=== PATIENT | female | born 1980 | race Caucasian/White ===

== ENCOUNTER 2017-06-11 02:48 | Emergency (ER) ==
[2017-06-11 02:53] VITALS: BP 137/98; TEMP 97.4; BMI 19.3
[2017-06-11] MEDS ORDERED: GI COCKTAIL PO STA (03:13)
[2017-06-11] MEDS ORDERED: SODIUM CHLORIDE 1,000 ML IV STA (03:16)
[2017-06-11] MEDS ORDERED: ZOFRAN 4 MG/2 ML IVP STA (03:17)
[2017-06-11] MEDS ORDERED: DUONEB NEB STA (03:17)
--- NOTE | 2017-06-11 03:18 | ED.PDOC ---
General ED Provider: Dr. REDDY WATTERS Chief Complaint: Shortness of Air Stated Complaint: Patient is a 36 year old female who complains feeling shortness of breath and buring 4 hours after she ate a buffee. Time Seen by Physician: 03:18 Mode of Arrival: Walk-In Information Source: Patient Exam Limitations: No limitations Primary Care Provider: VIDHI GTZ Nursing and Triage Documentation Reviewed and Agree: Yes GI Complaint Exam - Abdominal Pain Complaint/Exam Onset: Sudden Duration: 4 hours ago Symptoms Are: Still present Timing: Constant Initial Severity: Moderate Current Severity: Moderate Location of Pain: Epigastric Radiates To: Reports: Chest Character: Reports: Burning Aggravating: Reports: None Alleviating: Reports: None Associated Signs and Symptoms: Reports: Chest pain, Nausea, Vomiting (spitting ) . Denies: Diaphoresis AAA Risk Factors: Reports: None Cardiac Risk Factors: Reports: None Ectopic Risk Factors: Reports: None Ovarian Torsion Risk Factors: Reports: None Surgical Obstruction Risk Factors: Reports: None Related Surgical History: Reports: None Patient Rh Status: Negative Differential Diagnoses: Irritable Bowel Syndrome, PUD, Other (Gastritis) Quality Indicator For Non-Traumatic Chest Pain/Syncope: EKG Performed Review of Systems - Review Of Systems Constitutional: Reports: No symptoms Eyes: Reports: No symptoms Ears, Nose, Mouth, Throat: Reports: No symptoms Respiratory: Reports: Cough, Short of air Cardiac: Reports: No symptoms GI: Reports: Abdominal pain, Nausea, Vomiting : Reports: No symptoms Musculoskeletal: Reports: No symptoms Skin: Reports: No symptoms Neurological: Reports: No symptoms Endocrine: Reports: No symptoms Hematologic/Lymphatic: Reports: No symptoms All Other Systems: Reviewed and Negative Past Medical History - Past Medical History Previously Healthy: Yes Endocrine: Reports: Hypothyroid Cardiovascular: Reports: None Respiratory: Reports: None Hematological: Reports: None Gastrointestinal: Reports: None Genitourinary: Reports: None Neuro/Psych: Reports: None Musculoskeletal: Reports: None Cancer: Reports: None Last Menstrual Period: CURRENT Other Pertinent Past Medical History: TISSUE TUMOR REMOVED FROM UNDER BREAST - Surgical History General Surgical History: Reports: Appendectomy, Tonsillectomy, Hernia Repair, Other (FATTY TISSUE TUMOR REMOVED FROM UNDER BREAST) - Family History Family History: Reports: None - Social History Smoking Status: Current every day smoker Hx Substance Use: No Alcohol Screening: Occasionally - Immunizations Tetanus Shot up to Date: Yes Physical Exam - Physical Exam Appearance: Ill-appearing, Thin Ill-appearing: Moderate Pain Distress: Severe Neck: Supple Respiratory: Airway patent, Breath sounds equal, Breath sounds diminished, Respirations nonlabored Cardiovascular: RRR, Pulses normal, No rub, No murmur GI/: Soft, Nontender, No masses, Bowel sounds normal, No Organomegaly Musculoskeletal: Normal strength, ROM intact, No edema, No calf tenderness Skin: Warm, Dry, Normal color Neurological: Sensation intact, Motor intact, Reflexes intact, Cranial nerves intact, Alert, Oriented Interpretation - EKG Interpretation Time of EKG #1: 04:12 Rate: Normal Rhythm: Sinus Ectopy: None [place]: Right Interpretation: incomplete RBBB Re-Evaluation - Re-Evaluation Time of Re-Evaluation: 04:30 Status: Improved Vital Signs Stable: Yes Pain Level: gone after GI coctail Critical Care Note - Critical Care Note Total Time (mins): 0 Course - Course Hematology/Chemistry: 06/11/17 03:25 06/11/17 03:25 Orders, Labs, Meds: Lab Review 06/11/17 03:25 WBC 15.30 H RBC 4.36 Hgb 14.0 Hct 41.1 MCV 94.3 MCH 32.1 H MCHC 34.1 RDW Coeff of Anita 12.9 Plt Count 303 Immature Gran % (Auto) 0.3 Neut % (Auto) 63.5 Lymph % (Auto) 24.9 [place] % (Auto) 8.6 Eos % (Auto) 2.3 Baso % (Auto) 0.4 Immature Gran # (Auto) 0.1 Neut # 9.7 H Lymph # 3.8 H [place] # 1.3 Eos # 0.4 Baso # 0.1 Sodium 143 Potassium 3.7 Chloride 108 H Carbon Dioxide 24 Anion Gap 14.7 BUN 11 Creatinine 0.70 Estimated GFR (MDRD) 95.00 BUN/Creatinine Ratio 15.71 Glucose 87 Calcium 9.0 Total Bilirubin 0.44 AST 15 ALT 21 Alkaline Phosphatase 62 Troponin I < 0.0100 Total Protein 6.5 Albumin 4.0 Globulin 2.5 Albumin/Globulin Ratio 1.60 Orders Category Date Time Status EKG-(ED ONLY) Stat CARDIO 06/11/17 03:12 Completed NEBULIZER TREATMENT Stat CARDIO 06/11/17 03:17 Completed ED IV/MEDIPORT/POWERPORT .ONCE EMERGENCY 06/11/17 03:16 Active CBC W/ AUTO DIFF Stat LAB 06/11/17 03:25 Completed COMPREHENSIVE METABOLIC PANEL Stat LAB 06/11/17 03:25 Completed TROPONIN I Stat LAB 06/11/17 03:25 Completed 0.9 % Sodium Chloride [Saline Flush] MEDS 06/11/17 03:17 Ordered 1 syr IVF PRN PRN Ipratropium/Albuterol Neb [Duoneb] MEDS 06/11/17 03:17 Discontinued 1 vial NEB ONCE STA Mag-Al Plus//Lidocaine [Gi Cocktail] MEDS 06/11/17 03:13 Discontinued 30 ml PO ONCE STA Ondansetron HCl/Pf [Zofran 4 mg/2 ml] MEDS 06/11/17 03:17 Discontinued 4 mg IVP ONCE STA Sodium Chloride 0.9% [Sodium Chloride] 1,000 ml MEDS 06/11/17 03:16 Discontinued IV BOLUS Medications Generic Name Dose Route Start Last Admin Trade Name Freq PRN Reason Stop Dose Admin Sodium Chloride 1 syr 06/11/17 03:17 06/11/17 03:53 Saline Flush IVF 1 syr PRN PRN Administration To flush IV Discontinued Medications Generic Name Dose Route Start Last Admin Trade Name Freq PRN Reason Stop Dose Admin Al Hydroxide/Mg Hydroxide 30 ml 06/11/17 03:13 06/11/17 03:53 Gi Cocktail PO 06/11/17 03:14 30 ml ONCE STA Administration Albuterol/Ipratropium 1 vial 06/11/17 03:17 06/11/17 04:07 Duoneb NEB 06/11/17 03:18 1 vial ONCE STA Administration Sodium Chloride 1,000 mls @ 1,000 mls/hr 06/11/17 03:16 06/11/17 03:53 Sodium Chloride IV 06/11/17 04:15 1,000 mls/hr BOLUS STA Administration Ondansetron HCl 4 mg 06/11/17 03:17 06/11/17 03:53 Zofran 4 Mg/2 Ml IVP 06/11/17 03:18 4 mg ONCE STA Administration Vital Signs: Temp Pulse Resp BP Pulse Ox 06/11/17 02:49 97.4 F L 92 H 20 137/98 H 99 Departure - Departure Time of Disposition: 04:50 Disposition: HOME SELF-CARE Discharge Problem: Dyspepsia GERD (gastroesophageal reflux disease) Qualifiers: Esophagitis presence: without esophagitis Qualifier Code: (K21.9) Gastro- esophageal reflux disease without esophagitis Instructions: Indigestion (ED), Gastroesophageal Reflux Disease (ED) Condition: Fair Pt referred to PMD for follow-up: Yes Additional Instructions: STOP smoking Follow up with pcp in 3 days Take medications as prescribed. Prescriptions: Pantoprazole Sodium [Protonix] 40 mg PO QDAC #30 tablet. Allergies/Adverse Reactions: Allergies sertraline [From Zoloft] Adverse Reaction (Verified 06/11/17 02:54) topiramate [From Topamax] Adverse Reaction (Verified 06/11/17 02:54) Home Medications: Ambulatory Orders Alprazolam 1 mg PO PRN PRN 06/11/17 Levothyroxine Sodium [Synthroid] 100 mcg PO DAILY 06/11/17 Pantoprazole Sodium [Protonix] 40 mg PO QDAC #30 tablet. 06/11/17 Disposition Discussed With: Patient, Family
[2017-06-11 03:26] LABS: BASOPHILS # (AUTO) 0.1 K/uL (0-0.2); BASOPHILS % (AUTO) 0.4 % (0.0-3.0); EOSINOPHILS # (AUTO) 0.4 K/ul (0.0-0.7); EOSINOPHILS % (AUTO) 2.3 % (0.0-7.0); HEMATOCRIT 41.1 % (37.0-47.0); IMMATURE GRANULOCYTE % (AUTO) 0.3 % (0.0-5.0); LYMPHOCYTES # (AUTO) 3.8 K/uL (0.60-3.4); LYMPHOCYTES % (AUTO) 24.9 (10.0-50.0); MEAN CORPUSCULAR HEMOGLOBIN 32.1 pg (27.0-31.0); MEAN CORPUSCULAR HGB CONC 34.1 (31.8-35.4); MEAN CORPUSCULAR VOLUME 94.3 fl (81.0-99.0); MONOCYTES # (AUTO) 1.3 K/uL (0.4-2.0); MONOCYTES % (AUTO) 8.6 (0-10); NEUTROPHILS # (AUTO) 9.7 K/ul (2.0-6.9); NEUTROPHILS % (AUTO) 63.5; PLATELET COUNT 303 10^3/uL (140-440); RED BLOOD COUNT 4.36 10^6/ul (4.20-5.40)
[2017-06-11 03:51] LABS: ALANINE AMINOTRANSFERASE 21 U/L (12-78); ALKALINE PHOSPHATASE 62 U/L (42-98); ANION GAP 14.7; ASPARTATE AMINO TRANSFERASE 15 U/L (15-37); BILIRUBIN,TOTAL 0.44 mg/dL (0.00-1.20); BLOOD UREA NITROGEN 11 mg/dL (7-18); BUN/CREATININE RATIO 15.71; CARBON DIOXIDE 24 mmol/L (21-32); CHLORIDE 108 mmol/L (98-107); GLUCOSE 87 mg/dL (70-110); POTASSIUM 3.7 mmol/L (3.5-5.10); SODIUM 143 mmol/L (136-145); TOTAL PROTEIN 6.5 g/dL (6.4-8.2)
== END 2017-06-11 04:50 | disposition home or self-care (01) ==
LOC: ED 02:48
DX: K21.9 Gastro-esophageal reflux disease without esophagitis (principal); F17.210 Nicotine dependence, cigarettes, uncomplicated
CPT/HCPCS: 36415; 80053; 84484; 85025; 93005; 93010; 94640; 96361; 96374; 99283